=== PATIENT | female | born 1975 | race Caucasian/White ===

== ENCOUNTER 2019-05-23 13:48 | Emergency (ER) | payer OTHER ==
[~2019-05-23] VITALS: Ht 160 cm; Wt 78.6 kg
[~2019-05-23 13:48] MED LIST: CALCIUM1 CAP PO; CLONIDINE0.2 M1 PO; ELITE MAGNESIUM1 TAB; HYDRALAZINE10 MG PO; L40 PO; METOPROLOL25 MG PO; MYFORTIC360 MG PO; NOR5 PO; PRE10 PO; PRO PO; RENAGEL400 MG PO; ROC25 PO; ZOC10 PO; ZOCOR PO
[2019-05-23 13:52] VITALS: Ht 160 cm; Wt 78.6 kg
[2019-05-23 17:09] LABS: CALCIUM 7.2 mg/dL (8.5-10.1); MAGNESIUM 2.9 mg/dL (1.8-2.4)
[2019-05-23 19:04] VITALS: BP 101/56
== END 2019-05-23 19:04 | disposition home or self-care (01) ==
LOC: ED 13:48
PROVIDERS: Specialist
DX: E83.51 Hypocalcemia (principal); E20.9 Hypoparathyroidism, unspecified; F17.210 Nicotine dependence, cigarettes, uncomplicated; I12.0 Hypertensive chronic kidney disease with stage 5 chronic kidney disease or end stage renal disease; N18.6 End stage renal disease; Z99.2 Dependence on renal dialysis; Z71.6 Tobacco abuse counseling; Z88.6 Allergy status to analgesic agent; Z88.0 Allergy status to penicillin; Z88.8 Allergy status to other drugs, medicaments and biological substances
CPT/HCPCS: 36415; 99406

== ENCOUNTER 2019-07-02 22:05 | Emergency (ER) | payer OTHER ==
[~2019-07-02] VITALS: Ht 160 cm; Wt 74.8 kg
[2019-07-02 22:08] VITALS: Ht 160 cm; Wt 74.8 kg
[2019-07-02 23:05] LABS: BASOPHIL % 0.2 % (0-2); PLATELET COUNT 205 x10^3mcL (130-400); RED CELL DISTRIBUTION WIDTH 18.9 % (11.5-14.5)
[2019-07-02 23:52] LABS: ALBUMIN 3.5 g/dL (3.4-5.0); BILIRUBIN TOTAL 0.3 mg/dL (0.20-1.00); CALCIUM 6.4 mg/dL (8.5-10.1); CARBON DIOXIDE 28.2 mmol/L (21-32); TOTAL PROTEIN, SERUM 7.3 g/dL (6.4-8.2)
[2019-07-02 23:55] LABS: POTASSIUM SERUM 5.9 mmol/L (3.5-5.1)
[2019-07-02 23:56] LABS: CREATININE SERUM 11.1 mg/dL (0.6-1.0)
[2019-07-03 00:47] VITALS: BP 113/81
== END 2019-07-03 01:30 | disposition home or self-care (01) ==
LOC: ED 22:05
PROVIDERS: Emergency Medicine
DX: M79.601 Pain in right arm (principal); R22.31 Localized swelling, mass and lump, right upper limb; R07.89 Other chest pain; I12.0 Hypertensive chronic kidney disease with stage 5 chronic kidney disease or end stage renal disease; N18.6 End stage renal disease; Z99.2 Dependence on renal dialysis; Z90.89 Acquired absence of other organs; Z88.6 Allergy status to analgesic agent; Z88.0 Allergy status to penicillin; Z88.8 Allergy status to other drugs, medicaments and biological substances
CPT/HCPCS: J2270; Q0092